=== PATIENT | female | born 1945 | race Caucasian/White ===

== ENCOUNTER 2022-12-29 14:56 | Outpatient (AMB) | payer OTHER, SELFPAY ==
--- NOTE | 2022-12-29 14:59 | A.OFFVIS_ITS ---
Intake Vital Signs 12/29/22 15:01 Height 5 ft 3 in Weight 229 lb 6 oz BMI 40.6 BP 128/70 Blood Pressure Location Lt brachial Position Sitting Pulse 73 Pulse Source Pulse Oximeter Pulse Oximetry (%) 98 Oxygen Delivery Method Room Air Intake Visit Reasons: [employer] Tremor - Confirmed Intake Note: Pt presents today to establish care for tremors on (b) hands and also jaw for over 1 year Allergies No Known Allergies Allergy (Verified 12/29/22 15:04) HPI HPI Comments History of Present Illness Details 77 y/o right handed female patient presents for new in-person visit for evaluation of bilateral hands tremor and jaw tremor. Pt reports that her bilateral hands and chin tremors started about 2 years ago and has been progressing. Pt states that when she open her mouth, her jaw tremor gets worse. Pt's bilateral hands tremor increase in severity as the day passes. She can do all ADLs but has hand weakness and difficulty cooking and using utensils. Pt also reports hands numbness and burning feeling at night, L>R. She has family hx of tremor. Has hx of arthritis. No psychiatric medication history. Pt reports snoring, frequent arousals, but denies REM behavior or vivid dreams. Pt reports constipation manages with Colace occasionally Denies memory loss. Denies neck pain. [facility] Medical History (Updated 12/30/22 @ 20:53 by Gabrielle Rueda CNP) Gallbladder calculus Umbilical hernia Surgical History (Updated 12/29/22 @ 15:07 by Yolanda Petty) H/O: hysterectomy Family History (Updated 12/29/22 @ 15:07 by Yolanda Petty) Father Tremors of nervous system Social History (Updated 12/29/22 @ 15:08 by Yolanda Petty) Alcohol intake: never Patient Tobacco Use Status: Former Tobacco user Review of Systems Const All systems reviewed & are unremarkable except as noted in HPI and below Physical Exam Vital Signs: Last Vital Signs Pulse 73 12/29/22 15:01 BP 128/70 12/29/22 15:01 Pulse Ox 98 12/29/22 15:01 Oxygen Delivery Method Room Air 12/29/22 15:01 BMI result Body Mass Index 40.6 Const General: cooperative Nutritional Appearance: obese Orientation/consciousness: patient oriented x3 Neuro Other: Jaw tremor, increased with mouth opening. Bilateral hands posturing and action tremor. General: patient oriented x3 Gait exam (Neuro): Antalgic gait present Motor exam (neuro): 5/5 motor strength present throughout (right hand high lead yarder we lexie than left) and Tremors during motor activity present Deep tendon reflexes (DTR's): Right brachioradialis reflex intensity grade: 2+, Left brachioradialis reflex intensity grade: 2+, Right patellar reflex intensity grade: 0 and Left patellar reflex intensity grade: 0 Assessment & Plan Assessment & Plan (1) Essential tremor: Code(s): G25.0 - Essential tremor (2) Carpal tunnel syndrome on both sides: Code(s): G56.03 - Carpal tunnel syndrome, bilateral upper limbs (3) Tremor of both hands: Code(s): R25.1 - Tremor, unspecified Plan Pt is on beta hyacinth. Refer patient to occupational therapy for hands strength and tremor. Advised patient to try Shira Trio for hands tremor relief. Advised patient to use wrist brace at night for carpal tunnel. Orders: Orders OT Evaluation and Treatment 12/29/22 G56.03 - Carpal tunnel syndrome, bilateral upper limbs, R25.1 - Tremor, unspecified Medications: New Brace,wrist (Wrist Brace - one) apply to bilateral wrist 2 ea 0RF G56.03 - Carpal tunnel syndrome, bilateral upper limbs, R25.1 - Tremor, unspecified Coding Level of Care Code New Pt Level 4 ([id number]) Diagnoses Essential tremor G25.0 Carpal tunnel syndrome on both sides G56.03 Tremor of both hands R25.1
[2022-12-29 15:01] VITALS: BP 128/70; PULSE 73; O2SAT 98; BMI 40.6
== END 2022-12-29 15:58 | disposition home or self-care (01) ==
PROVIDERS: PCP Internal Medicine; Visit Provider Nurse Practitioner Family
DX: G56.03 Carpal tunnel syndrome, bilateral upper limbs (principal); R25.1 Tremor, unspecified
CPT/HCPCS: 99204

== ENCOUNTER → 2022-12-29 14:56 | Outpatient (BNVA) | payer OTHER, SELFPAY | PROVIDERS: PCP Internal Medicine; Visit Provider Nurse Practitioner Family ==